=== PATIENT | male | born 1965 | race Caucasian/White ===

== ENCOUNTER 2022-08-03 12:37 | Emergency (ER) | payer MEDICAID ==
[~2022-08-03] VITALS: Ht 180.3 cm; Wt 73.0 kg
[2022-08-03 13:19] VITALS: BP 163/98
[2022-08-03] MEDS ORDERED: KETOROLAC TROMETH 60MG/2ML VIAL IM ONE (14:30)
[2022-08-03 14:58] LABS: Basophils # (auto) 0.1 10 ^3/uL (0-0.2); Basophils % (auto) 0.6 % (0.0-2.0); Eosinophils # (auto) 0.2 10 ^3/uL (0-0.8); Eosinophils % (auto) 2.5 % (0.0-7.0); Hematocrit 46.3 % (41.0-53.0); Hemoglobin 15.9 g/dL (13.5-17.5); Lymphocytes # (auto) 2.7 10 ^3/uL (0.4-5.4); Lymphocytes % (auto) 30.2 % (10.0-50.0); Mean Corpuscular Hemoglobin 32.3 pg (28.0-32.0); Mean Corpuscular Hgb Conc. 34.5 g/dL (32.0-36.0); Mean Corpuscular Volume 93.6 fL (80.0-100.0); Monocytes # (auto) 1.3 10 ^3/uL (0-1.3); Monocytes % (auto) 14.4 % (0.0-12.0); Neutrophils # (auto) 4.6 10 ^3/uL (1.6-8.6); Neutrophils % (auto) 52.3 % (37.0-80.0); Red Blood Cells 4.94 10^6/uL (4.5-5.90); Red Cell Distribution Width 13.3 % (11.8-14.3); White Blood Cell 8.8 10^3/uL (4.4-10.8)
[2022-08-03 15:21] LABS: BUN/Creatinine Ratio 10.7 (10.0-20.0); Calcium 8.8 mg/dL (8.5-10.1); Potassium 4.2 mmol/L (3.5-5.1); Uric Acid 5.7 mg/dL (3.5-7.2)
[2022-08-03 15:22] LABS: Alcohol, Urine < 3.0 mg/dL (0-10); Amphetamine Screen, Urine POSITIVE (NEGATIVE); Barbiturate Scree,Urine NEGATIVE (NEGATIVE); Benzodiazephine Screen, Urine NEGATIVE (NEGATIVE); Cannabinoid Screen, Urine POSITIVE (NEGATIVE); Cocaine Screen, Urine NEGATIVE (NEGATIVE)
[2022-08-03 15:30] LABS: Opiate Scree,Urine NEGATIVE (NEGATIVE); Phencyclidine Screen, Urine NEGATIVE (NEGATIVE)
[2022-08-03] MEDS ORDERED: PRED20TA2 PO (15:52)
[2022-08-03] MEDS ORDERED: NAPR-746 PO (15:52)
== END 2022-08-03 15:57 | disposition home or self-care (01) ==
LOC: ER 12:37
DX: M19.041 Primary osteoarthritis, right hand (principal); M23.91 Unspecified internal derangement of right knee; M77.8 Other enthesopathies, not elsewhere classified; F15.10 Other stimulant abuse, uncomplicated; I10 Essential (primary) hypertension; Z88.0 Allergy status to penicillin; Z79.899 Other long term (current) drug therapy
CPT/HCPCS: 36415; 73130; 80048; 80307; 84550; 85025; 96372; 99284; J1885

== ENCOUNTER 2022-11-19 11:20 | Emergency (ER) | payer MEDICAID ==
[~2022-11-19] VITALS: Ht 177.8 cm; Wt 50.0 kg
[~2022-11-19 11:20] MED LIST: NAPR-746 PO; PRED20TA2 PO
[2022-11-19 11:30] VITALS: BP 130/78; PULSE 90; RESP 18; O2SAT 97
[2022-11-19] MEDS ORDERED: traMADol HCL 50 MG TAB PO ONE (11:30)
== END 2022-11-19 15:37 | disposition left against medical advice (07) ==
LOC: ER 11:20 → EDBD 11:20 → ER 15:37
DX: M25.572 Pain in left ankle and joints of left foot (principal); F15.10 Other stimulant abuse, uncomplicated; M79.10 Myalgia, unspecified site; I10 Essential (primary) hypertension; F12.10 Cannabis abuse, uncomplicated; F17.210 Nicotine dependence, cigarettes, uncomplicated; Z59.00 Homelessness unspecified; Z79.899 Other long term (current) drug therapy; Z88.0 Allergy status to penicillin; Z88.8 Allergy status to other drugs, medicaments and biological substances

== ENCOUNTER 2024-03-13 12:45 | Emergency (ER) | payer MEDICAID ==
[~2024-03-13] VITALS: Ht 177.8 cm; Wt 64.4 kg
--- NOTE | 2024-03-13 13:48 | DVH ---
CHEST RADIOGRAPH Indication: COUGH Technique: Frontal and lateral view of the chest was obtained Comparison: None FINDINGS: Lines and Tubes: None Lungs: Clear Pleura: No effusion. No pneumothorax. Cardiomediastinal contours: Unremarkable Bones: Unremarkable IMPRESSION: No evidence of acute disease.
--- NOTE | 2024-03-13 14:08 | ED.PDOC ---
History of Present Illness HPI Comments A 58 YEAR OLD MALE PRESENTS TO THE ED WITH CHIEF COMPLAINT OF FLU-LIKE ILLNESS. PATIENT REPORTS THAT HE HAS BEEN EXPERIENCING A MIGRAINE HEADACHE WITH ASSOCIATED NASAL CONGESTION, COUGH, AND BILATERAL EAR PAIN FOR THE PAST WEEK. PATIENT DENIES ANY SORE THROAT, FEVER, CHILLS, DIZZINESS, N/V, ABDOMINAL PAIN, O R SOB. NO OTHER SYMPTOMS REPORTED AT THIS TIME OF CARE. PT IS ALERT, ORIENTATION X4 WITH NORMAL GAIT. Chief Complaint: Flu like Time Seen by MD: 13:40 Primary Care Provider: MICKEY Reviewed Notes: Nurses Notes, Medications, Allergies Allergies: Coded Allergies: Iodine (Verified Allergy, Severe, 11/19/22) Penicillins (Verified Allergy, Unknown, 11/19/22) Home Meds Active Scripts Promethazine-Dm (Promethazine Dm 6.25-15 mg/5Ml) 1 Tiffany Tiffany, 5 ML PO TID, #160 ML Prov:ZAIN WALL 03/13/24 Ibuprofen (Ibuprofen) 600 Mg Tab, 1 TAB PO TID, #30 TAB Prov:ZAIN WALL 03/13/24 Azithromycin (Azithromycin) 500 Mg Tab, 1 TAB PO DAILY, #5 TAB Prov:ZAIN WALL 03/13/24 Prednisone (Prednisone) 20 Mg Tab, 40 MG PO DAILY, #20 MG Prov:ZAIN WALL 08/03/22 Naproxen (Naproxen) 500 Mg Tab, 500 MG PO BID, #30 TAB Prov:ZAIN WALL 08/03/22 Information Source: Patient Mode of Arrival: Ambulatory Severity: Moderate Timing: Days Duration: Since onset Prehospital treatment: None Medication Refill: For: Other (COUGH AND CONGESTION WITH MIGRAINE HEADACHE ) Past Medical History PAST MEDICAL HISTORY: HTN Past Medical History (Other): MIGRAINE HEADACHE Surgical History: Hernia Repair Family History Family History: Reviewed,noncontributory to illness Social History Smoker: Non-Smoker Alcohol: Denies ETOH Use, Sober Drugs: Denies Drug Use Lives In: Homeless Constitutional: denies: chills, diaphoresis, fatigue, fever, malaise, sweats, weakness, others EENTM: reports: ear pain, nose congestion; denies: blurred vision, double vision, ear bleeding, ear discharge, ear drainage, ear ringing, eye pain, eye redness, hearing loss, mouth pain, mouth swelling, nasal discharge, nose bleeding, nose pain, photophobia, tearing, throat pain, throat swelling, voice changes, others Respiratory: reports: cough; denies: hemoptysis, orthopnea, SOB at rest, shortness of breath, SOB with excertion, stridor, wheezing, others Cardiovascular: denies: chest pain, dizzy spells, diaphoresis, Dyspnea on exertion, edema, irregular heart beat, left arm pain, lightheadedness, palpitat ions, PND, syncope, others Gastrointestinal: denies: abdomen distended, abdominal pain, blood streaked bow els, constipated, diarrhea, dysphagia, difficulty swallowing, hematemesis, melena, nausea, poor appetite, poor fluid intake, rectal bleeding, rectal pain, vomiting, others Genitourinary: denies: burning, dysuria, flank pain, frequency, hematuria, incontinence, penile discharge, penile sore, pain, testicle pain, testicle swelling, urgency, others Neurological: reports: headache; denies: dizziness, fainting, left sided numbness, left sided weakness, numbness, paresthesia, pre-existing deficit, right sided numbness, right sided weakness, seizure, speech problems, tingling, tremors, weakness, others Musculoskeletal: denies: back pain, gout, joint pain, joint swelling, muscle p ain, muscle stiffness, neck pain, others Integumetry: denies: bruises, change in color, change in hair/nails, dryness, laceration, lesions, lumps, rash, wounds, others Allergic/Immunocompromised: denies: Difficulty Healing, Frequent Infections, Hives, Itching, others Hematologic/Lymphatic: denies: anemia, blood clots, easy bleeding, easy bruising, swollen glands, others Endocrine: denies: excessive hunger, excessive sweating, excessive thirst, excessive urination, flushing, intolerance to cold, intolerance to heat, unexplained weight gain, unexplained weight loss, others Psychiatric: denies: anxiety, bipolar disorder, depression, hopeless, panic disorder, schizophrenia, sleepless, suicidal, others All Other Systems: Reviewed and Negative Physical Exam General Appearance: No Apparent Distress, Normal HEENT: PERRL/EOMI, Pharynx Normal, TM Abnormal (L) (ERYTHEMA AND DULL WITH MILD EFFUSION OF LEFT TM, NO DRAINAGE AND BLOOD CLOTS. ) Neck: Full Range of Motion, Non-Tender, Normal, Normal Inspection Respiratory: Chest Non-Tender, Expiration, No Accessory Muscle Use, No Respiratory Distress, Rhonchi Cardiovascular: No Edema, No JVD, No Murmur, No Gallop, Normal Peripheral Pulses, Regular Rate/Rhythm Breast Exam: Deferred Gastrointestinal: No Organomegaly, Non Tender, No Pulsatile Mass, Normal Bowel Sounds, Soft Genitalia: Deferred Pelvic: Deferred Rectal: Deferred Extremities: No calf tenderness, Normal capillary refill, Normal inspection, Normal range of motion, Non-tender, No pedal edema Musculoskeletal : Apperance: Normal Neurologic: Alert, [employer] [facility] II-XII nml as Tested, No Motor Deficits, Normal Affect, Normal Mood, No Sensory Deficits Cerebellar Function: Normal Reflexes: Normal Skin: Dry, Normal Color, Warm Peripheral Pulses: 2+ carotid (R), 2+ carotid (L) Lymphatic: No Adenopathy Was a procedure done? Was a procedure done?: No Differential Dx Considerations may include: AOM OF LEFT EAR, URI, MIGRAINE HEADACHE, BRONCHITIS, PNEUMONIA X-Ray, Labs, Meds, VS Vital Signs Date Time Temp Pulse Resp B/P (MAP) Pulse Ox O2 Delivery O2 Flow Rate FiO2 03/13/24 14:42 98.6 98 16 100/68 (79) 96 98.6 03/13/24 14:42 98 16 96 Room Air 03/13/24 13:05 98.4 103 18 98/74 (82) 93 Current Medications Medications (Trade) Dose Ordered Sig/Miranda Route Start Time Stop Time Status Last Admin Ketorolac Tromethamine (Toradol Injection) 60 mg ONCE ONCE IM 03/13/24 14:30 03/13/24 14:31 DC 03/13/24 14:40 CHEST XR: FINDINGS: Lines and Tubes: None Lungs: Clear Pleura: No effusion. No pneumothorax. Cardiomediastinal contours: Unremarkable Bones: Unremarkable IMPRESSION: No evidence of acute disease. X-Ray, Labs, Meds, VS Comment EXTERNAL MEDICAL RECORDS REVIEWED: 11/19/22 FOR BODY PAINS INDEPENDENT HISTORIANS: [NONE] SOCIAL DETERMINANTS OF HEALTH: [NONE] LABS ORDERED: NONE REVIEWED AND INTERPRETED RESULTS: NO ACUTE FINDING CHEST X-RAY: NO ACUTE FINDING. TREATMENT: TORADOL 60MG IM Time of 1ST Reevaluation: 14:50 Reevaluation 1ST: Improved Patient Education/Counseling: Diagnosis, Treatment, Need For Follow Up Family Education/Counseling: Diagnosis, Treatment, No Family Present Medical Screening: No EMC Exist At This Time Departure 1 Departure Time of Disposition: 15:00 Impression: Primary Impression: Acute otitis media with effusion of left ear Additional Impression: Acute bronchitis Qualified Codes: J20.9 - Acute bronchitis, unspecified Disposition: 01 HOME / SELF CARE / HOMELESS Condition: Stable Additional Instructions: F/U PCP IN 2 DAYS RECHECK. IF CONDITION BECOME WORSE, RETURN TO ED [facility]. e-Prescriptions Promethazine-Dm (Promethazine Dm 6.25-15 mg/5Ml) 1 Tiffany Tiffany 5 ML PO TID, #160 ML Prov: ZAIN WALL 03/13/24 Ibuprofen (Ibuprofen) 600 Mg Tab 1 TAB PO TID, #30 TAB Prov: ZAIN WALL 03/13/24 Azithromycin (Azithromycin) 500 Mg Tab 1 TAB PO DAILY, #5 TAB Prov: ZAIN WALL 03/13/24 Discharged With: Self Critical Care Note Critical Care Time?: No Stability Stability form required: No Heart Score Heart Score: Heart Score Response (Comments) Value History N/A 0 EKG N/A 0 Age N/A 0 Risk Factors N/A 0 Troponin N/A 0 Total 0 I personally scribed for ZAIN WALL ([email or web address]) on 03/13/24 at 14:08. Electronically submitted by Kalin Phillips ([email or web address]). I personally scribed for ZAIN WALL ([email or web address]) on 03/13/24 at 14:13. Electronically submitted by Kalin Phillips ([email or web address]). I personally scribed for ZAIN WALL ([email or web address]) on 03/13/24 at 14:31. Electronically submitted by Kalin Phillips ([email or web address]). ZAIN WALL Mar 13, 2024 14:08
[2024-03-13] MEDS ORDERED: AZIT500T66 PO (14:22)
[2024-03-13] MEDS ORDERED: PROM1SOL4 PO (14:22)
[2024-03-13] MEDS ORDERED: IBUP-1454 PO (14:22)
[2024-03-13] MEDS: KETOROLAC TROMETH 60MG/2ML VIAL IM ONE (14:40)
[2024-03-13 14:42] VITALS: BP 100/68; PULSE 98; RESP 16; TEMP 98.6; O2SAT 96
== END 2024-03-13 14:51 | disposition home or self-care (01) ==
LOC: ER 12:45
DX: J20.9 Acute bronchitis, unspecified (principal); H65.192 Other acute nonsuppurative otitis media, left ear; G43.909 Migraine, unspecified, not intractable, without status migrainosus; I10 Essential (primary) hypertension; Z98.890 Other specified postprocedural states; Z59.00 Homelessness unspecified; Z88.0 Allergy status to penicillin; Z91.041 Radiographic dye allergy status; Z79.1 Long term (current) use of non-steroidal anti-inflammatories (NSAID); Z79.52 Long term (current) use of systemic steroids; Z79.899 Other long term (current) drug therapy
CPT/HCPCS: 71046; 96372; 99283; J1885